=== PATIENT | female | born 1960 | race Caucasian/White ===

== ENCOUNTER 2020-06-22 00:18 | Emergency (ER) | payer OTHER ==
[2020-06-22 03:10] LABS: BASOPHIL 0.8 % (0-2); EOSINOPHIL 5.1 % (0-5); HCT 39.8 % (37.0-47.0); HGB 13.3 g/dl (12.5-16.0); LYMPHOCYTE 31.6 % (15-48); MCH 30.7 pg (25.0-31.0); MCHC 33.4 g/dL (32.0-36.0); MCV 91.9 fL (78.0-100.0); MONOCYTE 6.4 % (0-12); MPV 11.1 fL (6.0-9.5); NEUTROPHIL 55.7 % (41-80); NRBC 0; PLT 293 K/uL (150-400); RBC 4.33 M/uL (4.20-5.40); RDW 13.8 % (11.5-14.0); WBC 8.9 K/uL (4.0-10.5)
[2020-06-22 03:14] LABS: ALBUMIN 3.4 g/dL (3.4-5.0); BILIRUBIN - TOTAL 0.3 mg/dL (0.2-1.0); BUN/CREAT RATIO (CALC) 19.6 RATIO; CREATININE 0.92 mg/dL (0.51-0.95); GLOBULIN (CALCULATION) 3.7 g/dL; PHOSPHORUS 3.8 mg/dL (2.6-4.7); POTASSIUM 4.2 mmol/L (3.5-5.1); TOTAL PROTEIN 7.1 g/dL (6.4-8.2)
[2020-06-22] MEDS ORDERED: ONDANSETRON ODT4 MG SL (06:24)
[2020-06-22] MEDS ORDERED: AUGMENTIN 875-1 EACH PO (06:24)
[2020-06-22] MEDS ORDERED: PERCOCET 5-3251 EACH PO (06:24)
== END 2020-06-22 06:38 | disposition home or self-care (01) ==
LOC: FER 00:18
PROVIDERS: Emergency Medicine Emergency Medical Services
DX: L03.211 Cellulitis of face (principal); F17.200 Nicotine dependence, unspecified, uncomplicated; Z85.828 Personal history of other malignant neoplasm of skin
CPT/HCPCS: 36415; 70487; 80053; 83735; 84100; 85025; 86140; J1170; J1885; J2405; Q9967